=== PATIENT | female | born 1980 | race Hispanic/Latino ===

== ENCOUNTER 2017-07-30 17:36 | Emergency (ER) | payer BC ==
[2017-07-30 17:51] VITALS: BP 115/77; PULSE 68; RESP 16; TEMP 98.2; O2SAT 99
--- NOTE | 2017-07-30 17:55 | ED PDOC ---
HPI: Back Time Seen by Provider: 07/30/17 17:55 Chief Complaint (Nursing): Back Pain Chief Complaint (Provider): low back pain History Per: Patient Additional Complaint(s): 37 year old female with history of herniated disc to lumbar spine presents with low back pain for the past week. Patient denies any fall or trauma. No meds taken for pain relief. Patient denies bowel or bladder dysfunction. Pain does radiate from time to time down right leg. Patient denies any bowel or bladder dysfunction, no fever or chills. Past Medical History Reviewed: Historical Data, Nursing Documentation, Vital Signs Vital Signs: Last Vital Signs Temp 98.2 F 07/30/17 17:49 Pulse 68 07/30/17 17:49 Resp 16 07/30/17 17:49 BP 115/77 07/30/17 17:49 Pulse Ox 99 07/30/17 17:49 - Medical History PMH: Back Problems - Surgical History Surgical History: Hernia Repair - Family History Family History: States: No Known Family Hx - Living Arrangements Living Arrangements: With Family - Social History Current smoker - smoking cessation education provided: No Alcohol: Social Drugs: Denies - Home Medications Home Medications: Ambulatory Orders Medication Instructions Recorded Cyclobenzaprine [Cyclobenzaprine 10 mg PO TID PRN #20 tab 07/30/17 HCl] Naproxen [Naprosyn] 500 mg PO BID #28 tab 07/30/17 - Allergies Allergies/Adverse Reactions: Allergies Allergy/AdvReac Type Severity Reaction Status Date / Time Penicillins Allergy RASH Verified 07/30/17 17:49 Review of Systems ROS Statement: Except As Marked, All Systems Reviewed And Found Negative Constitutional: Negative for: Fever Cardiovascular: Negative for: Chest Pain Respiratory: Negative for: Cough Gastrointestinal: Negative for: Nausea, Vomiting Genitourinary Female: Negative for: Dysuria, Frequency, Incontinence, Hematuria Musculoskeletal: Positive for: Back Pain Neurological: Negative for: Weakness, Numbness Physical Exam - Reviewed Nursing Documentation Reviewed: Yes Vital Signs Reviewed: Yes - Physical Exam Appears: Positive for: Well, Non-toxic, No Acute Distress Skin: Negative for: Rash Eye Exam: Positive for: Normal appearance Cardiovascular/Chest: Positive for: Regular Rate, Rhythm Respiratory: Positive for: Normal Breath Sounds Back: Positive for: Vertebral Tenderness (left lower lumbar region, negative bilateral straight leg raise, patient is able to heel and toe walk) Extremity: Positive for: Normal ROM Neurologic/Psych: Positive for: Alert, Oriented, Gait (steady) - Laboratory Results Urine POC: Negative (test declined, patient states she is certain she is not ) - ECG O2 Sat by Pulse Oximetry: 99 Pulse Ox Interpretation: Normal Medical Decision Making Medical Decision Makin37 year old with acute on chronic low back pain Plan: Pain meds refused in ED Patient is leaving for vacation tomorrow and is requesting rx for pain med and muscle relaxer. Rx provided for naprosyn and flexeril. Patient was referred to ortho superintendent [facility] for follow up. Disposition - Clinical Impression Clinical Impression: Back pain - Patient ED Disposition Is Patient to be Admitted: No Counseled Patient/Family Regarding: Diagnosis, Need For Followup, Rx Given - Disposition Referrals: Herrera Proctor MD [Staff Provider] - Disposition: Routine/Home Disposition Time: 18:01 Condition: STABLE Additional Instructions: TAKE RX MEDS DIRECTED. AVOID HEAVY LIFTING AND REST MUCH YOU CAN. FOLLOW UP WITH PRIMARY CARE DOCTOR OR ORTHOPEDIST FOR ANY PERSISTENT SYMPTOMS. Prescriptions: Cyclobenzaprine [Cyclobenzaprine HCl] 10 mg PO TID PRN #20 tab PRN Reason: Muscle Spasm Naproxen [Naprosyn] 500 mg PO BID #28 tab Instructions: Low Back Pain (DC), Back Exercises, Herniated Disc Forms: [facility] ([place])
== END 2017-07-30 19:00 | disposition home or self-care (01) ==
LOC: H.ER 17:36
DX: M54.9 Dorsalgia, unspecified (principal); Z88.0 Allergy status to penicillin